=== PATIENT | female | born 1970 | race Caucasian/White ===

== ENCOUNTER → 2019-08-31 | Outpatient (CLI) | payer OTHER ==
--- NOTE | 2019-09-02 13:34 | MM ---
Reason for exam: screening (asymptomatic). Last mammogram was performed 2 years and 2 months ago. History: Family history of breast cancer in mother at age 72. Physical Findings: A clinical breast exam by your physician is recommended on an annual basis and results should be correlated with mammographic findings. MG Screening Mammo w CAD Bilateral CC and MLO view(s) were taken. Prior study comparison: June 25, 2017, mammogram, performed at [facility]. November 08, 2015, mammogram, performed at [facility]. There are scattered fibroglandular densities. There is chronic nodularity in the left breast. No significant changes when compared with prior studies. ASSESSMENT: Negative, BI-RAD 1 RECOMMENDATION: Routine screening mammogram of both breasts in 1 year.
== END ==
LOC: RADMAMWWP 14:51
PROVIDERS: ATTEND Obstetrics & Gynecology
DX: Z12.31 Encounter for screening mammogram for malignant neoplasm of breast (principal); Z80.3 Family history of malignant neoplasm of breast
CPT/HCPCS: 77067

== ENCOUNTER → 2023-01-19 | Outpatient (CLI) | payer BC ==
--- NOTE | 2023-01-21 21:07 | MR ---
EXAMINATION TYPE: MR knee LT wo con DATE OF EXAM: 01/19/2023 COMPARISON: Outside radiograph 01/06/2023 HISTORY: 53-year-old female M25.562, PAIN LT KNEE, GIVES OUT AND LOCKS UP, SOME SWELLING ON/OFF TECHNIQUE: Multiplanar, multisequence imaging of the left knee is performed without IV contrast. FINDINGS: There is diffuse heterogeneity of the ACL. Some attenuation of the posterior insertional tibial fiber s. There is also thickening and some inhomogeneous signal of the PCL. The ligament is thickened up to 9 mm. Some edema on either side of the intact MCL. Lateral collateral ligament complex is intact. The medial meniscus is diffusely degenerative, torn, and extruded due to the presence of a third thic kness posterior root tear. The partially extruded body is mass effect onto the overlying MCL. The me dial compartment shows moderate irregular cartilage thinning along the mid weightbearing aspect of th e joint. There is marginal spurring in both medial and lateral compartments. Extensive degenerative signal is present throughout the LCL. 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 No well-defined tear is identified at this time. Moderate cartilage thinning along the anterior weightb earing anterior central aspect of the lateral femoral condyle articular surface. The patella shows moderate to severe cartilage loss along the inferior two thirds of the medial amanda lar facet and also along the superior aspect of the medial trochlear facet. Extensor mechanism is intact. There is a small knee joint effusion with small, slitlike Carrera's cyst measuring 6.3 x 2.2 x 0.6 cm. Multilocular ganglion cyst at the origin of the medial head gastrocnemius measuring 2.2 x 1.6 cm. Add itional multilocular ganglion cyst located along the posterior aspect of the knee joint measuring 1.4 x 1.2 cm. No suspicious bone marrow replacement. Normal popliteal artery anatomy. Mild generalized muscle atro phy. IMPRESSION: 1. Partial thickness tear at the tibial insertion of the ACL. 2. Thickening and some inhomogeneous signal of the PCL could represent mucoid degeneration or partial tear. 3. Grade 1 MCL sprain. 4. Diffusely torn and partially extruded medial meniscus. Extrusion occurs secondary to a through thi ckness posterior root tear. 5. Large, discoid lateral meniscus with degenerative signal throughout but no discrete tear at this t [place]. 6. Moderate medial and patellofemoral compartmental OA. Mild overall OA in the lateral compartment. 7. Long, but slitlike Carrera's cyst measuring 6 x 3 x 2.2 x 0.6 cm.
== END | disposition home or self-care (01) ==
LOC: RADMRIMAIN 12:57
PROVIDERS: ATTEND Orthopaedic Surgery
DX: S83.412A Sprain of medial collateral ligament of left knee, initial encounter (principal); M17.12 Unilateral primary osteoarthritis, left knee; M71.22 Synovial cyst of popliteal space [Baker], left knee

== ENCOUNTER → 2023-02-27 | Outpatient (CLI) | payer BC ==
[2023-02-27 15:45] LABS: Basophils # (A) 0.03 X 10*3/uL (0.00-0.10); Basophils % (A) 0.5 %; Eosinophils % (A) 1.6 %; HCT 46.5 % (37.2-46.3); HGB 15.4 g/dL (12.0-15.0); Immature Grans, Automated 0.3 %; Lymphocytes # (A) 1.35 X 10*3/uL (0.90-5.00); MCH 30.1 pg (27.0-32.0); MCHC 33.1 g/dL (32.0-37.0); Mean Platelet Volume 11.8 fL (9.5-12.2); Monocytes # (A) 0.59 X 10*3/uL (0.20-1.00); Monocytes % (A) 9.6 %; NRBC Per 100 WBC 0 /100 WBCS (0.0-0.0); Neutrophils # (A) 4.04 X 10*3/uL (1.80-7.70); Platelet Count 165 X 10*3/uL (140-440); RBC 5.11 X 10*6/uL (4.10-5.20); RDW 13.2 % (11.5-14.5); WBC 6.13 X 10*3/uL (4.50-10.00)
== END | disposition home or self-care (01) ==
LOC: LABWHC1 08:22
PROVIDERS: ATTEND Orthopaedic Surgery
DX: Z01.818 Encounter for other preprocedural examination (principal); M23.92 Unspecified internal derangement of left knee; R94.31 Abnormal electrocardiogram [ECG] [EKG]
CPT/HCPCS: 36415; 85025; 93005